=== PATIENT | male | born 1970 | race Caucasian/White ===

== ENCOUNTER 2018-05-27 12:36 | Outpatient (CLI) | payer OTHER ==
--- NOTE | 2018-05-27 16:44 | MRI ---
MRI BRAIN NONCONTRAST: DATE: 05/27/18 HISTORY: 48-year-old male with: R41.3, memory loss of unknown cause G40.A09, absence attack FINDINGS: The ventricles are normal in size and configuration. There is no major intraaxial signal abnormality , restricted diffusion, midline shift or any other mass effect, recent intraaxial hemorrhage, or extr aaxial fluid collection. This was performed as a noncontrast seizure protocol with thin slice coronal images through the brain . Bilateral mesial temporal structures, including hippocampi, are symmetrical, with no signal abnorma lity. There is a tiny punctate focus of T2 hyperintensity in the right frontal deep white matter whic h is statistically most likely to represent a minimal focus of chronic ischemic white matter change. IMPRESSION: Essentially normal. jn[] POS: [facility]
== END 2018-05-27 12:37 | disposition home or self-care (01) ==
LOC: CANPRECLI → TBSIIMAG 12:36
PROVIDERS: ATTEND Family Medicine
DX: R41.3 Other amnesia (principal); G40.A09 Absence epileptic syndrome, not intractable, without status epilepticus
CPT/HCPCS: 70551